=== PATIENT | male | born 1970 | race Caucasian/White ===

== ENCOUNTER 2020-09-01 11:00 | Emergency (ER) | payer SELFPAY ==
[2020-09-01 11:00] VITALS: BP 172/118; PULSE 73; RESP 20; TEMP 36.8; O2SAT 97; BMI 25.0
[2020-09-01 11:17] VITALS: BMI 25.0
--- NOTE | 2020-09-01 11:36 | HMH.EDUTC ---
[facility] [place] Disposition Clinical Impression: Tick bite of back Qualifiers: Encounter type: initial encounter Qualified Code(s): S30.860A - Insect bite (nonvenomous) of lower back and pelvis, initial encounter; W57.XXXA - Bitten or stung by nonvenomous insect and other nonvenomous arthropods, initial encounter Disposition: Home, Self-Care Condition on Discharge: Good Instructions: How to Remove a Tick, Protect Yourself from Tickborne Illnesses, Essential Hypertension, DI for High Blood Pressure Additional Instructions: follow up with dr Patel on friday at [address] Colon friday at 945 antibiotics as ordered keep track of bp -write it down and bring to appointments if symptoms worsen return or be seen in ed Prescriptions: lisinopriL [Lisinopril] 5 mg PO DAILY 5 Days #5 tab Transmission Status: Pending to [facility] Minocycline HCl [Minocycline HCl 100mg Tab*] 100 mg PO BID 14 Days #28 tab Transmission Status: Pending to [facility] Referrals: Wil Colon MD [Primary Care Provider] - Time of Disposition: 12:10 Medical Decision Making - Graham Inquiry Pt receiving controlled substance: No Vital Signs: 09/01/20 11:00 09/01/20 12:00 09/01/20 12:02 Temperature 98.2 F 98.2 F Temperature Source Oral Pulse Rate 69 Pulse Rate [Right Brachial] 73 69 Respiratory Rate 20 20 Blood Pressure 162/117 H Blood Pressure [Right Arm] 172/118 H 162/117 H Blood Pressure Mean [Right Arm] 136 132 Blood Pressure Source [Right Arm] Automatic Cuff Automatic Cuff Blood Pressure Position [Right Arm] Sitting Sitting 02 Sat by Pulse Oximetry 97 Oxygen Delivery Method Room Air - Lab Data Lab Results 09/01/20 11:35: WBC 8.9, RBC 5.31, Hgb 16.2, Hct 47.7, MCV 89.8, MCH 30.5, MCHC 33.9, RDW 13.7, Plt Count 248, MPV 9.2, Neut % (Auto) 63.5, Lymph % (Auto) 26.4, [place] % (Auto) 5.8, Eos % (Auto) 3.7, Baso % (Auto) 0.7, Neut # (Auto) 5.6, Lymph # (Auto) 2.3, [place] # (Auto) 0.5, Eos # (Auto) 0.3, Baso # (Auto) 0.1 09/01/20 11:35: Sodium 141, Potassium 4.3, Chloride 106, Carbon Dioxide 23, BUN 11, Creatinine 0.60 L, Estimated Creat Clear 179, Estimated GFR 144, Est GFR ( Amer) 174, Glucose 108 H, Calcium 9.3, Total Bilirubin 0.4, AST 43, ALT 72, Alkaline Phosphatase 166 H, Total Protein 8.2, Albumin 4.7, Globulin 3.5 H, Albumin/Globulin Ratio 1.3 Result diagrams: 09/01/20 11:35 09/01/20 11:35 Orders (Tests/Meds): ORDERS Category Date Time Status CMP [Comprehensive Metabolic Panel] Stat Lab 09/01/20 11:35 Results Lyme, IgM, Early Test/Reflex Stat Lab 09/01/20 11:35 Received Ty Mtn Spotted Fev, IgG, Qn Stat Lab 09/01/20 11:35 Received Ty Mtn Spotted Fever, IgM Stat Lab 09/01/20 11:35 Received [facility] [place] HPI - General Chief complaint: Urgent [facility] Stated complaint: tick bite Time Seen by Provider: 09/01/20 11:36 Mode of Arrival: Ambulatory Source of Information: Patient, Parent(s) Limitations: No Limitations Description of Symptoms (Recalled from Triage Doc. by RN): PATIENT C/O TICK BITE TO LEFT SIDE, UNKNOWN WHEN HE WAS BIT. TICK WAS REMOVED PER . REDNESS NOTED AROUND BITE. PATIENT STATES THAT SINCE BEGINNING OF THE WEEK HE HAS BEEN FEELING WEIRD , C/O HEADACHE AND WEAKNESS HEENT Symptoms (Recalled from RN notes): No Resp Symptoms (Recalled from RN notes): No Skin Symptoms (Recalled from RN notes): Yes MS Symptoms (Recalled from RN notes): No Functional Status (Recalled from RN notes): WNL - History of Present Illness Provider Complaint: 50 yr old male presents for a tick bite to left side(flank). unknow how long tick was there but it was swollen when removed on friday. Pt states he has been feeling tired, headache,weak and a weird taste in his mouth since friday. states this am it had a red ring around bite. pt also has htn. states when she checks it at home it is always elevated. - Related Data Previous Rx's Medication
[2020-09-01 11:41] LABS: Basophils # 0.1 K/mm3 (0-0.2); Basophils % 0.7 % (0.1-2.0); Eosinophils # 0.3 K/mm3 (0.0-0.4); Eosinophils % 3.7 % (0.1-12.0); Hematocrit 47.7 % (42.0-52.0); Hemoglobin 16.2 g/dL (14.1-18.0); Lymphocytes # 2.3 K/mm3 (0.7-4.5); Lymphocytes % 26.4 % (10-50); Mean Corpuscular HGB Conc 33.9 g/dL (31.8-35.4); Mean Corpuscular Hemoglobin 30.5 pg (27.0-31.2); Mean Corpuscular Volume 89.8 fl (80-94); Mean Platelet Volume 9.2 fl (7.4-10.4); Monocytes # 0.5 K/mm3 (0.1-1.0); Monocytes % 5.8 % (1.7-9.3); Neutrophils # 5.6 K/mm3 (1.8-7.8); Neutrophils % 63.5 % (37.0-80.0); Platelet Count 248 K/mm3 (142-424); Red Blood Count 5.31 M/mm3 (4.60-6.20); Red Cell Distribution Width 13.7 % (11.5-17.5); White Blood Count 8.9 K/mm3 (4.8-10.8)
[2020-09-01 11:46] LABS: Chloride 106 mmol/L (98-107); Potassium 4.3 mmoL/L (3.5-5.1); Sodium 141 mmol/L (136-145)
[2020-09-01 11:49] LABS: Alanine Aminotransferase 72 U/L (12-78); Albumin Level 4.7 g/dl (3.5-5.0); Albumin/Globulin Ratio 1.3 (1.1-1.8); Alkaline Phosphatase 166 U/L (38-126); Aspartate Amino Transferase 43 U/L (17-59); Bilirubin,Total 0.4 mg/dl (0.2-1.3); Blood Urea Nitrogen 11 mg/dl (9-20); Carbon Dioxide 23 mmol/L (22.0-30.0); Creatinine Clearance Estimated 179 mL/min (50-200); Estimated Glomerular Filt Rate 144 ml/min (>60); GFR (African American) 174 ML/MIN (>60); Globulin 3.5 g/dL (1.3-3.2); Total Protein,Serum 8.2 g/dl (6.3-8.2)
[2020-09-01 11:50] LABS: Calcium 9.3 mg/dl (8.4-10.2); Glucose 108 mg/dl (74-100)
[2020-09-01 12:00] VITALS: BP 162/117; PULSE 69
[2020-09-01 12:02] VITALS: BP 162/117; PULSE 69; RESP 20; TEMP 36.8; O2SAT 97
[2020-09-05 02:08] LABS: RMSF, IgG, EIA Negative (Negative); Rocky Mtn Spotted Fever, IgM 0.14 index (0.00-0.89)
== END 2020-09-01 12:15 | disposition home or self-care (01) ==
PROVIDERS: Emergency Provider Nurse Practitioner Family; PCP Emergency Medicine
DX: S30.860A Insect bite (nonvenomous) of lower back and pelvis, initial encounter (principal); W57.XXXA Bitten or stung by nonvenomous insect and other nonvenomous arthropods, initial encounter
CPT/HCPCS: 36415; 80053; 85025; 86609; 86618; 99202; G0463

== ENCOUNTER 2024-06-07 12:19 | Emergency (ER) | payer OTHER, SELFPAY ==
[2024-06-07] VITALS (7 sets, daily range): BP systolic 121–152; BP diastolic 75–90; PULSE 90–115; RESP 16–20; TEMP 37.1–37.6; O2SAT 90–97; BMI 25.0
[2024-06-07 12:38] LABS: Microscopic, Urine URINE MICROSCOPIC (MICROSCOPIC)
[2024-06-07 12:38] LABS: Coronavirus 19, PCR Not Detected (NotDetected); Influenza B, PCR Not Detected (NotDetected)
--- NOTE | 2024-06-07 12:41 | XR_ITS ---
FINAL REPORT TECHNIQUE: Chest PA & Lateral CLINICAL HISTORY: Cough, CP, SOB COMPARISON: None FINDINGS: 2 views of the chest were performed. The heart size is normal. The mediastinum is within normal limits. There is no acute cardiopulmonary process. Mild chronic changes are noted. There are no pleural effusions. There is no pneumothorax. The bony thorax appears intact. IMPRESSION: No acute cardiopulmonary process. Reviewed, Interpreted and Dictated by Imer Calhoun MD Transcribed by Kerrie Ferrera Authenticated and [facility]
--- NOTE | 2024-06-07 12:43 | HMH.EDGENADL ---
Discharge Plan Disposition Patient Disposition: Home, Self-Care Prescriptions Prescriptions: New ondansetron 4 mg tablet,disintegrating 4 mg PO Q8H PRN (Reason: nausea and vomiting) 4 Days Qty: 12 0RF No Action lisinopril 5 MG tablet 5 mg PO DAILY 5 Days Qty: 5 0RF minocycline 100 MG tablet 100 mg PO BID 14 Days Qty: 28 0RF Referrals Follow up/Referrals: Sarah Gillis APRN [Primary Care Provider] - See instructions Activity Restrictions/Add. Instructions Additional Instructions/Restrictions: You can take Tylenol and ibuprofen every 6 hours as needed to help with symptoms. You are being prescribed Zofran to help with nausea and vomiting. Take this as prescribed. You will likely have a lingering cough for the next several weeks. Follow-up with your primary care physician if symptoms do not improve. If you develop any new or worsening symptoms, or if you become concerned for your health for any reason, return to the emergency department for evaluation Clinical Impressions Clinical Impression: Influenza A Instructions Patient Instructions: DI for Urinary Tract Infection (UTI), DI for Urinary Tract Infection in Children Print Language Print Language: Mohawk Discharge ED Provider: Darius Mulligan General Adult HPI General Chief complaint: Urogenital-Male Stated complaint: vomiting, cough, fever, Time Seen by Provider: 06/07/24 12:37 Mode of Arrival: Ambulatory Source of Information: Patient Description of Symptoms (Recalled from ER Triage Doc. by RN): Pt presents for evaluation of jourdan colored urine x 2-3 days. Pt has also had a productive cough, bodyaches, and chills. History of Present Illness HPI narrative: Lani Castañeda is a 54-year-old male with a past medical history of hypertension and tobacco use who presents to the emergency department for complaints of cough, shortness of breath and chest pain as well as nausea and vomiting. Patient states that his symptoms started 3 days ago and have not gotten any better. He reports that he has had decreased oral intake because he vomits every time that he eats. He is also having increased phlegm with his cough. He is concerned that he might have pneumonia or the flu. His had similar type illness several days ago. He reports some chest pain and pain between his shoulder blades and shortness of breath at this time as well. He states that he has had decreased urine output and is darker than normal. Related Data Previous Rx's ?Medication ?Instructions ?Recorded lisinopril 5 mg tablet 5 mg PO DAILY 5 days #5 tabs 09/01/20 minocycline 100 mg tablet 100 mg PO BID 14 days #28 tabs 09/01/20 ondansetron 4 mg disintegrating 4 mg PO Q8H PRN nausea and 06/07/24 tablet vomiting 4 days #12 tabs Allergies Allergy/AdvReac Type Severity Reaction Status Date / Time No Known Allergies Allergy Verified 06/07/24 12:35 [facility] Disclaimer: The information contained in this section may have been updated after the patient was seen, as this information can be updated by other users. Social History Smoking Status: Current every day smoker alcohol intake: never current occupational status: other Travel in the last 8 weeks: None Have you lived/traveled outside [place] in past 30 days?: No Contact w/someone who lives/traveled outside [place] past 30 days?: No Exposure to someone with infectious disease in past 14 days?: No Do you have a fever (greater than 100.4 F or 38 C)?: Yes Have you tested positive for COVID-19: No Exposed to someone with COVID-19 in past 14 days?: No Do you have a sore throat?: No Do you have a cough?: Yes Do you have any weakness?: No Do you have any diarrhea?: No Are you experiencing any unusual bleeding?: No Do you have any muscle aches/pain?: No Do you have any abdominal pain?: No Are you experiencing loss of taste or smell?: No ROS Obtained: Yes Systems reviewed as appropriate & no additional complaints except as documented Physical Exam General General appearance: alert Comment: Ill but nontoxic-appearing. Mildly dehydrated with dry mucous membranes Head Head exam: atraumatic Eye Eye exam: Present normal appearance ENT ENT exam: Present normal external ear exam Neck Neck exam: Present full ROM Chest Chest inspection: Present symmetric chest wall rise Respiratory Respiratory exam: Present normal lung sounds bilaterally; Absent respiratory distress, wheezes or stridor Cardiovascular Cardiovascular exam: Present normal rhythm and tachycardia Abdominal Exam Abdominal exam: Present soft and tenderness (Mild right-sided lower abdominal tenderness without rebound or guarding); Absent guarding or rebound exam: Present deferred Extremities Exam Extremities exam: Present normal inspection Back Exam Back exam: Present normal inspection Neurological Exam Neurological exam: Present alert and oriented X3 Psychiatric Psychiatric exam: Present normal affect Skin Skin exam: Present warm and dry Medical Decision Making Medical Records Screening: Per USPSTF and CDC recommendations, given the prevalence of disease in our region, it is our hospital?s policy to screen for HIV and viral Hepatitis for all patients aged 18 and over and those with ongoing risk factors. Graham Inquiry Pt receiving controlled substance: No Vital Signs: 06/07/24 12:30 06/07/24 12:36 06/07/24 13:00 Temperature 99.7 F H Temperature Source Oral Pulse Rate 115 H 104 H Pulse Rate [Right] 109 H Respiratory Rate 18 Blood Pressure 121/86 143/90 H Blood Pressure [Right Arm] 146/82 H Blood Pressure Mean [Right Arm] 103 Blood Pressure Source Blood Pressure Source [Right Arm] Automatic Cuff Blood Pressure Position [Right Arm] Sitting 02 Sat by Pulse Oximetry 97 95 94 L Oxygen Delivery Method Room Air Room Air Room Air 06/07/24 13:15 06/07/24 13:30 06/07/24 14:00 Temperature Temperature Source Pulse Rate 101 H 98 H 102 H Pulse Rate [Right] Respiratory Rate 16 20 Blood Pressure 152/85 H 133/75 Blood Pressure [Right Arm] Blood Pressure Mean [Right Arm] Blood Pressure Source Blood Pressure Source [Right Arm] Blood Pressure Position [Right Arm] 02 Sat by Pulse Oximetry 90 L 91 L 91 L Oxygen Delivery Method Room Air Room Air 06/07/24 14:23 Temperature 98.8 F Temperature Source Oral Pulse Rate 90 Pulse Rate [Right] Respiratory Rate 20 Blood Pressure 133/75 Blood Pressure [Right Arm] Blood Pressure Mean [Right Arm] Blood Pressure Source Automatic Cuff Blood Pressure Source [Right Arm] Blood Pressure Position [Right Arm] 02 Sat by Pulse Oximetry Oxygen Delivery Method Room Air Lab Data Lab Results 06/07/24 12:29: SARS-CoV-2 (PCR) Not detected, Influenza A Untype (PCR) Detected A, Influenza Type B (PCR) Not detected 06/07/24 12:30: Urine Color Dark yellow, Urine Appearance Clear, Urine pH 7.0, Ur Specific [place] 1.020, Urine Protein 1+ A, Urine Glucose (UA) Negative, Urine Ketones Negative, Urine Blood Negative, Urine Nitrate Negative, Urine Bilirubin Trace, Urine Urobilinogen 1.0, Ur Leukocyte Esterase Negative, Urine RBC 3-5, Urine WBC 3-5, Ur Squamous Epith Cells Occasional, Urine Bacteria None 06/07/24 12:40: WBC 8.6, RBC 4.91, Hgb 14.9, Hct 44.4, MCV 90.4, MCH 30.3, MCHC 33.6, RDW 13.6, Plt Count 208, MPV 11.6 H, Neut % (Auto) 82.8 H, Lymph % (Auto) 4.0 L, [place] % (Auto) 12.2 H, Eos % (Auto) 0.1, Baso % (Auto) 0.7, Neut # (Auto) 7.1, Lymph # (Auto) 0.3 L, [place] # (Auto) 1.1 H, Eos # (Auto) 0.0, Baso # (Auto) 0.1, Sodium 134 L, Potassium 3.8, Chloride 100, Carbon Dioxide 25, Anion Gap 12.8, BUN 13, Creatinine 0.90, Estimated Creat Clear 114, Estimated GFR 89, Est GFR ( Amer) 107, Glucose 116 H, Calcium 9.0, Total Bilirubin 0.4, AST 35, ALT 38, Alkaline Phosphatase 124, Troponin I < 0.01, Total Protein 7.7, Albumin 4.5, Globulin 3.2, Albumin/Globulin Ratio 1.4, Lipase 42 06/07/24 12:40 06/07/24 12:40 Orders (Tests/Meds): ED MEDICATIONS Discontinued Medications Generic Name Dose Route Start Last Admin Trade Name Freq PRN Reason Stop Dose Admin Lactated Ringer's 1,000 mls @ 999 mls/hr 06/07/24 12:41 06/07/24 12:52 Lactated Ringer's 1000 Ml Bag IV 06/07/24 13:41 999 mls/hr .Q1H1M ONE Administration Ondansetron HCl 4 mg 06/07/24 12:41 06/07/24 12:52 Ondansetron 4mg/2ml Vial IV 06/07/24 12:42 4 mg ONCE ONE Administration ORDERS Category Date Time Status CXR 2 view (NOT portable) [XR chest 2V] Stat Exams 06/07/24 12:41 Completed CBC w/Auto Diff [Complete Blood Count Auto Diff] Stat Lab 06/07/24 12:40 Completed CMP [Comprehensive Metabolic Panel] Stat Lab 06/07/24 12:40 Completed Lipase Stat Lab 06/07/24 12:40 Completed Rapid PCR Covid and Flu A/B Stat Lab 06/07/24 12:29 Completed Troponin I Stat Lab 06/07/24 12:40 Completed Urinalysis and Microscopic Stat Lab 06/07/24 12:30 Completed ECG Data Tracing #1: I reviewed this ECG and interpreted as documented below: EKG interpreted by me personally. Sinus tachycardia with ventricular rate of 107 bpm. QTc normal at 363, MN interval normal at 159. No ST elevation or depression Medical Decision Narrative: Lani Castañeda is a 54-year-old male with a past medical history of hypertension and tobacco use who presents to the emergency department for complaints of cough, shortness of breath and chest pain as well as nausea and vomiting. Patient states that his symptoms started 3 days ago and have not gotten any better. He reports that he has had decreased oral intake because he vomits every time that he eats. He is also having increased phlegm with his cough. He is concerned that he might have pneumonia or the flu. His had similar type illness several days ago. He reports some chest pain and pain between his shoulder blades and shortness of breath at this time as well. He states that he has had decreased urine output and is darker than normal. On arrival, patient is tachycardic and hypertensive and borderline febrile with a temperature of 99.7 ?F. He has an active dry cough. Physical exam, stated above, revealed an ill but nontoxic appearing male with an active dry cough but no acute respiratory distress. Lung sounds are clear bilaterally. He has some mild right lower abdominal tenderness without guarding, rebound or peritonitis. He has dry mucous membranes. Differential diagnosis includes, but is not limited to: Influenza, COVID, pneumonia, sepsis, ACS, UTI, viral gastroenteritis, acute pancreatitis, dehydration, DARCIE, among others Workup in the emergency department included: 2 view chest x-ray, EKG, troponin, CBC, CMP, rapid flu/COVID testing, urinalysis, lipase. Patient was symptomatically treated with 1 L lactated ringer, 4 mg IV Zofran. Workup demonstrated no leukocytosis, no anemia, mildly low sodium 134 but CMP otherwise unremarkable nonactionable. Troponin less than 0.01 with unremarkable EKG as stated above. Lipase normal at 42, urinalysis without evidence of infection. No DARCIE. Influenza A positive. No DARCIE. Chest x-ray interpreted by me personally. No focal consolidation, no pneumothorax, no widening of the mediastinum and no enlarged cardiac silhouette. Lung volumes appear mildly enlarged with mild flattening of the hemidiaphragms, which could represent undiagnosed COPD in the setting of his chronic tobacco use. Patient has been borderline hypoxic here with oxygen saturations in the mid to low 90s but does not require oxygen. Undiagnosed COPD in the setting of acute viral illness could be the reason for his mildly low oxygen saturations. See radiology report for final details. Patient is outside the window for any treatment with Tamiflu/Xofluza. Will recommend symptomatic treatment with Tylenol, ibuprofen and send patient with prescription for Zofran to help with nausea and vomiting. He is instructed to stay hydrated by drinking plenty of fluids and to follow-up with his primary care physician if symptoms do not improve. All questions were answered. Return precautions were given. Patient was then discharged from the emergency department in stable condition. Critical Care Critical Care Time Critical Care Time: No
--- NOTE | 2024-06-07 12:48 | ECG_ITS ---
APPROVED REPORT Exam: Resting ECG HR:107 bpm ECG Measurements Heart Rate 107 AXES UT 159 P 66 QRSd 98 QRS 42 QT 300 T 68 QTc 363 Conclusion SINUS TACHYCARDIA ABNORMAL RHYTHM ECG Electronically signed by : JUAN AGEE, 06/11/2024 11:00:35
[2024-06-07 12:50] LABS: Basophils # 0.1 K/mm3 (0-0.2); Basophils % 0.7 % (0.1-2.0); Eosinophils % 0.1 % (0.1-12.0); Hematocrit 44.4 % (42.0-52.0); Hemoglobin 14.9 g/dL (14.1-18.0); Lymphocytes # 0.3 K/mm3 (0.7-4.5); Mean Corpuscular HGB Conc 33.6 g/dL (31.8-35.4); Mean Corpuscular Hemoglobin 30.3 pg (27.0-31.2); Mean Corpuscular Volume 90.4 fl (80-94); Mean Platelet Volume 11.6 fl (7.4-10.4); Monocytes # 1.1 K/mm3 (0.1-1.0); Monocytes % 12.2 % (1.7-9.3); Neutrophils # 7.1 K/mm3 (1.8-7.8); Neutrophils % 82.8 % (37.0-80.0); Platelet Count 208 K/mm3 (142-424); Red Blood Count 4.91 M/mm3 (4.60-6.20); Red Cell Distribution Width 13.6 % (11.5-17.5); White Blood Count 8.6 K/mm3 (4.8-10.8)
[2024-06-07] MEDS: ONDANSETRON 4MG/2ML VIAL 4 MG IV (12:52)
[2024-06-07] MEDS: LACTATED RINGERS 1000ML 1,000 ML 999 ML IV (12:52)
[2024-06-07 12:57] LABS: Appearance,Urine Clear (Clear); Color,Urine Dark Yellow (Yellow)
[2024-06-07 12:58] LABS: Bilirubin,Urine Trace (Negative); Blood, Urine Negative (Negative); Glucose,Urine (UA) Negative (Negative); Ketones,Urine Negative (Negative); Leukocyte Esterase,Urine Negative (Negative); Nitrate,Urine Negative (Negative); Protein,Urine 1+ (Negative); Squamous Epithelial Cell,Urine Occasional #/hpf (0-5)
[2024-06-07 13:00] LABS: Albumin Level 4.5 g/dl (3.5-5.0); Chloride 100 mmol/L (98-107); Potassium 3.8 mmoL/L (3.5-5.1); Sodium 134 mmol/L (136-145)
[2024-06-07 13:02] LABS: Blood Urea Nitrogen 13 mg/dl (9-20); Creatinine Clearance Estimated 114 mL/min (50-200); Estimated Glomerular Filt Rate 89 ml/min (>60); GFR (African American) 107 ML/MIN (>60)
[2024-06-07 13:03] LABS: Alanine Aminotransferase 38 U/L (12-78); Albumin/Globulin Ratio 1.4 (1.1-1.8); Alkaline Phosphatase 124 U/L (38-126); Anion Gap 12.8 mEq/L (5-15); Aspartate Amino Transferase 35 U/L (17-59); Bilirubin,Total 0.4 mg/dl (0.2-1.3); Carbon Dioxide 25 mmol/L (22.0-30.0); Globulin 3.2 g/dL (1.3-3.2); Glucose 116 mg/dl (74-100); Lipase 42 U/L (23-300); Total Protein,Serum 7.7 g/dl (6.3-8.2)
[2024-06-07 13:15] LABS: Influenza A, PCR Detected (NotDetected)
[2024-06-07 13:18] LABS: Troponin I < 0.01 ng/ml (0.00-0.034)
--- NOTE | 2024-06-07 14:17 | PC.NURSE ---
er at bedside
== END 2024-06-07 14:24 | disposition home or self-care (01) ==
PROVIDERS: Emergency Provider Student in an Organized Health Care Education/Training Program; PCP Family Medicine
DX: J10.1 Influenza due to other identified influenza virus with other respiratory manifestations (principal); R05.9 Cough, unspecified; R52 Pain, unspecified; R68.83 Chills (without fever); R06.02 Shortness of breath; R07.9 Chest pain, unspecified; R11.2 Nausea with vomiting, unspecified
CPT/HCPCS: 71046; 80053; 81001; 83690; 84484; 85025; 87636; 93005; 96365; 96374; 99284; J2405; J7120